=== PATIENT | female | born 1960 | race Two or more races ===

== ENCOUNTER → 2016-08-22 | Outpatient (CLI) | payer OTHER ==
--- NOTE | 2016-08-22 09:39 | DX ---
Chest, PA and Lateral History: Chest burning, history of asthma Comparison: none. Findings: There is moderate bronchial wall thickening. Lung volumes are mildly prominent. There is no focal consolidation, infiltrate or effusion. Heart size is normal. There is no pneumothorax or pneu momediastinum.>] Impression: Airways disease.
== END ==
LOC: BRMIMAGING 08:58
PROVIDERS: ATTEND Family Medicine
DX: J40 Bronchitis, not specified as acute or chronic (principal); J45.909 Unspecified asthma, uncomplicated
CPT/HCPCS: 71020-PO

== ENCOUNTER → 2017-06-26 | Outpatient (CLI) | payer OTHER | LOC: BRMIMAGING 16:13 | PROVIDERS: ATTEND Physician Assistant Medical | DX: J45.22 Mild intermittent asthma with status asthmaticus (principal) | CPT/HCPCS: 71020-PO ==